=== PATIENT | male | born 2005 | race Two or more races ===

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

== ENCOUNTER 2025-01-27 14:02 | Emergency (ER) | payer MEDICAID, SELFPAY ==
--- NOTE | 2025-01-27 14:19 | PC.NURSE ---
PATIENT CAME TO LOBBY DESK AND INFORMED NURSE HE WAS GOING TO BE LEAVING AND GOING TO [facility] [place] [facility]. PATIENT ELOPED AT 1420
== END 2025-01-27 14:21 | disposition left against medical advice (07) ==
PROVIDERS: Emergency Provider Family Medicine
DX: Z53.21 Procedure and treatment not carried out due to patient leaving prior to being seen by health care provider (principal)
CPT/HCPCS: 99283